=== PATIENT | male | born 1940 | race Caucasian/White ===

== ENCOUNTER 2017-02-01 14:34 | Emergency (ER) | payer MEDICARE, OTHER ==
--- NOTE | 2017-02-01 15:10 | ED Physician Documentation ---
PD HPI LOWER EXT INJURY - Stated complaint Stated Complaint: FALL, L LEG INJ - Chief complaint Chief Complaint: Ext Problem - History obtained from History obtained from: Patient - History of Present Illness PD HPI LOW EXT INJURY LOCATION: Left, Ankle, Foot Type of injury: Twist (he got his feet entangled in pajamas and bedsheet as he got out of bed, and fell to floor, twisting foot and ankle. Landed to hands and knees, per . No injury to head, chest, abdomen. Pain in left ankle and foot with walking.) Where injury occurred: Home Timing - onset: Today (this morning) Timing - duration: Hours Timing - details: Abrupt onset, Still present Improved by: Rest Worsened by: Moving, Other (standing) Associated symptoms: Numbness (chronically from neuropathy.). No: Weakness Contributing factors: No: Anticoagulated Similar symptoms before: Has not had sx before Recently seen: Not recently seen Review of Systems Constitutional: denies: Fever, Chills Cardiac: denies: Chest pain / pressure, Palpitations Respiratory: denies: Dyspnea, Cough GI: denies: Abdominal Pain, Nausea, Vomiting, Diarrhea : denies: Dysuria, Frequency Skin: denies: Abrasion (s), Laceration (s) Neurologic: reports: Numbness (both feet and legs due to diabetes). denies: Headache, Head injury PD PAST MEDICAL HISTORY - Past Medical History Cardiovascular: Hypertension, High cholesterol, Coronary artery disease Respiratory: Sleep apnea, CPAP use Endocrine/Autoimmune: Type 2 diabetes : Dialysis Psych: None Musculoskeletal: None, Gout - Past Surgical History Past Surgical History: Yes Cardiovascular: Angioplasty HEENT: Tonsil/Adenoidectomy - Present Medications Home Medications: Ambulatory Orders Medication Instructions Recorded Confirmed Aspirin [Aspir-Low] 325 mg PO DAILY 09/06/15 02/01/17 Calcium Carbonate [Calcium] 600 mg PO DAILY 09/06/15 02/01/17 Cholecalciferol (Vitamin D3) 2,000 - 50,000 unit PO DAILY 09/06/15 02/01/17 [Vitamin D] Felodipine [Felodipine ER] 10 mg PO DAILY 09/06/15 02/01/17 Gabapentin 100 - 300 mg PO TID 09/06/15 02/01/17 Insulin Aspart [Novolog] 6 - 14 unit SQ BID 01/15/16 06/12/17 Insulin Glargine,Hum.rec.anlog 28 unit SQ QPM 09/06/15 02/01/17 [Lantus] Lisinopril 10 mg PO DAILY 09/06/15 02/01/17 Metoprolol Tartrate 25 mg PO BID 09/06/15 02/01/17 Primidone 50 mg PO DAILY 09/06/15 02/01/17 Rosuvastatin Calcium [Crestor] 10 mg PO DAILY 09/06/15 02/01/17 Terazosin HCl 10 mg PO BID 09/06/15 02/01/17 rOPINIRole [Requip] 4 mg PO DAILY 09/06/15 02/01/17 Allopurinol 100 mg PO DAILY 02/01/17 02/01/17 Diphenoxylate/Atropine [Lomotil] 2 mg PO PRN PRN 02/01/17 02/01/17 Metolazone 10 mg PO DAILY 02/01/17 02/01/17 Torsemide 100 mg PO BID 02/01/17 02/01/17 - Allergies Allergies/Adverse Reactions: Allergies Allergy/AdvReac Type Severity Reaction Status Date / Time atorvastatin calcium * Allergy Severe leg cramps Verified 02/01/17 15:38 [From Lipitor] - Social History Does the pt smoke?: No Smoking Status: Never smoker Does the pt drink ETOH?: No Does the pt have substance abuse?: No - Immunizations Immunizations are current?: Yes - POLST Patient has POLST: Yes PD ED PE NORMAL - Vitals Vital signs reviewed: Yes - General General: Alert and oriented X 3, No acute distress, Well developed/nourished - HEENT HEENT: Atraumatic, Moist mucous membranes - Neck Neck: Supple, no meningeal sign, No bony TTP - Cardiac Cardiac: RRR, No murmur - Respiratory Respiratory: Clear bilaterally - Abdomen Abdomen: Soft, Non tender - Back Back: No spinal TTP - Derm Derm: Normal color, Warm and dry - Extremities Extremities: Other (left ankle with tenderness laterally and also some dorsally. Some tender base of 1st MT. No redness of skin. There is mild effusion of the ankle. Achilles is not tender. ) - Neuro Neuro: Alert and oriented X 3, No motor deficit, Normal speech, Other (less sensation to touch in feet and ankles, baseline per patient. ) Results - Vitals Vitals: Vital Signs - 24 hr 02/01/17 14:39 Temperature 36.3 C L Heart Rate 70 Respiratory 18 Rate Blood Pressure 152/72 H O2 Saturation 96 Oxygen O2 Source Room air - Rads (name of study) ankle and foot Radiology: Prelim report reviewed, EMP read contemporaneously (no fractures. Some arthritic change.s ) Departure - Departure Disposition: 01 Home, Self Care Clinical Impression: Left ankle sprain Qualifiers: Encounter type: initial encounter Involved ligament of ankle: other ligament Qualified Code(s): S93.492A - Sprain of other ligament of left ankle, initial encounter Condition: Stable Record reviewed to determine appropriate education?: Yes Instructions: ED Sprain Ankle Follow-Up: Benjamin Matos MD [Primary Care Provider] - Comments: Jaswant wrap and elevate for the swelling. Activity as able, with the boot brace when walking/standing to support the foot and ankle while healing. An ankle/ foot sprain can still take couple of weeks for healing. Recheck with PMD or Ortho if not improved though, over the the next 1-2 weeks. Ibuprofen 400 mg twice daily for 5-6 days for the pain and inflammation. Add Tylenol as needed for pains. At least one of your blood pressure readings in the ER today was elevated above the normal level. If you have diagnosed high blood pressure in the past, please be sure you are taking your BP medications and eating low salt diet. If you do not have know high BP, then being high today does not mean it is a fdc issue. It might be reactively high to the situation that has you here. You should follow up with your primary care to have the blood pressure checked again in the next few days/week or so to see if it is persistently high. If so, then you may need medication or changes in diet/lifestyle to treat it.
[2017-02-01] MEDS ORDERED: ACETAMINOPHEN 325 MG TABLET PO STA (15:22)
[2017-02-01] MEDS ORDERED: ACETAMINOPHEN 325 MG TABLET PO ONE (15:55)
--- NOTE | 2017-02-01 16:14 | XRAY Preliminary Report ---
Exam: XR Ankle 3 View LT IMPRESSION: Diffuse soft tissue swelling without fracture or dislocation. [facility] SITE ID: [id number]
--- NOTE | 2017-02-01 16:17 | XRAY Report ---
EXAM: LEFT ANKLE RADIOGRAPHY EXAM DATE: 02/01/2017 03:46 PM. CLINICAL HISTORY: Twisted/fell this morning. COMPARISON: None. TECHNIQUE: 3 views. FINDINGS: Bones: No evidence of fracture. Small plantar heel spur. Joints: Normal. No effusion. No subluxations. The ankle mortise is normally aligned. Soft Tissues: Diffuse soft tissue swelling. Atherosclerosis. IMPRESSION: Diffuse soft tissue swelling without fracture or dislocation. [facility] Referring Provider Line: [phone] SITE ID: [id number]
--- NOTE | 2017-02-01 16:18 | XRAY Preliminary Report ---
Exam: XR Foot 3 View LT IMPRESSION: 1. No evidence of fracture or dislocation. 2. Mild osteoarthritis first metatarsophalangeal joint. 3. Hallux valgus with medial soft tissue swelling consistent with bunion formation. Some well cortica mathew erosions are noted at the first metatarsal head and proximal phalanx of the great toe which can b e secondary to osteoarthritis although the differential diagnosis would include gout. [facility] SITE ID: [id number]
--- NOTE | 2017-02-01 16:21 | XRAY Report ---
EXAM: LEFT FOOT RADIOGRAPHY EXAM DATE: 02/01/2017 03:46 PM. CLINICAL HISTORY: Twisted/fell this morning. COMPARISON: None. TECHNIQUE: 3 views. FINDINGS: Bones: No evidence of fracture. Small plantar heel spur. Ossicles adjacent to the navicular. Joints: Hallux valgus with mild joint space narrowing at the first metatarsal-phalangeal joint. Soft Tissues: Medial soft tissue swelling of the first metatarsophalangeal joint with well-corticated erosions at the first metatarsal head and medial base of the proximal phalanx great toe. IMPRESSION: 1. No evidence of fracture or dislocation. 2. Mild osteoarthritis first metatarsophalangeal joint. 3. Hallux valgus with medial soft tissue swelling consistent with bunion formation. Some well cortica mathew erosions are noted at the first metatarsal head and proximal phalanx of the great toe which can b e secondary to osteoarthritis although the differential diagnosis would include gout. [facility] Referring Provider Line: [phone] SITE ID: [id number]
[2017-02-01 16:59] VITALS: BP 173/78
== END 2017-02-01 16:57 | disposition home or self-care (01) ==
LOC: ED 14:34
DX: S93.492A Sprain of other ligament of left ankle, initial encounter (principal); W06.XXXA Fall from bed, initial encounter; X50.1XXA Overexertion from prolonged static or awkward postures, initial encounter; Y93.89 Activity, other specified; Y92.003 Bedroom of unspecified non-institutional (private) residence as the place of occurrence of the external cause; I10 Essential (primary) hypertension; E11.9 Type 2 diabetes mellitus without complications; Z79.4 Long term (current) use of insulin; Z79.82 Long term (current) use of aspirin
CPT/HCPCS: 73610; 73630; 99283; A9270

== ENCOUNTER 2017-09-13 13:37 | Outpatient (CLI) | payer MEDICARE, OTHER | END 2017-09-13 13:38 | disposition home or self-care (01) | LOC: SC 13:37 | PROVIDERS: ATTEND Internal Medicine Pulmonary Disease | DX: G47.33 Obstructive sleep apnea (adult) (pediatric) (principal); G47.61 Periodic limb movement disorder | CPT/HCPCS: 99203; G0463; 99212 ==

== ENCOUNTER 2018-01-04 20:35 | Outpatient (CLI) | payer MEDICARE, OTHER | END 2018-01-04 20:36 | disposition home or self-care (01) | LOC: SC 20:35 | PROVIDERS: ATTEND Internal Medicine Pulmonary Disease | DX: G47.33 Obstructive sleep apnea (adult) (pediatric) (principal); G47.61 Periodic limb movement disorder | CPT/HCPCS: 95810 ==

== ENCOUNTER 2018-02-09 14:07 | Outpatient (CLI) | payer MEDICARE, OTHER | END 2018-02-09 14:08 | disposition home or self-care (01) | LOC: SC 14:07 | PROVIDERS: ATTEND Nurse Practitioner Family | DX: G47.33 Obstructive sleep apnea (adult) (pediatric) (principal); G47.61 Periodic limb movement disorder | CPT/HCPCS: 99214; G0463; 99212 ==

== ENCOUNTER 2018-03-02 16:09 | Outpatient (CLI) | payer MEDICARE, OTHER | END 2018-03-02 16:10 | disposition home or self-care (01) | LOC: SC 16:09 | PROVIDERS: ATTEND Nurse Practitioner Family | DX: G47.33 Obstructive sleep apnea (adult) (pediatric) (principal) | CPT/HCPCS: 99214; G0463; 99212 ==

== ENCOUNTER 2018-03-22 06:28 | Emergency (ER) | payer MEDICARE, OTHER ==
--- NOTE | 2018-03-22 07:56 | CT Report ---
Procedure Date: 03/22/2018 Accession Number: [id number] / [id number] Procedure: CT - Head W/O CPT Code: FULL RESULT: EXAM: CT HEAD EXAM DATE: 03/22/2018 07:31 AM. CLINICAL HISTORY: Fall. Frontal scalp hematoma. COMPARISON: HEAD W/O 04/29/2016 5:54 AM. TECHNIQUE: Multiaxial CT images were obtained from the foramen magnum to the vertex. Reformats: Coronal. IV contrast: None. In accordance with CT protocol optimization, one or more of the following dose reduction techniques were utilized for this exam: automated exposure control, adjustment of mA and/or KV based on patient size, or use of iterative reconstructive technique. FINDINGS: Parenchyma: No intraparenchymal hemorrhage. No evidence of mass, midline shift, or CT findings of acute infarction. James-white differentiation is distinct. Diffuse chronic microangiopathic white matter changes are evident. Extraaxial Spaces: Normal for age. No subdural or epidural collections identified. Ventricles: The ventricles and cortical sulci are enlarged, consistent with age-related tissue loss. Sinuses and orbits: Imaged paranasal sinuses, orbits, and mastoids show no significant abnormality. Bones: No evidence of fracture or calvarial defect. Other: There is focal subcutaneous soft tissue swelling in the left frontal region. IMPRESSION: Generalized age-related cortical atrophic changes without evidence of acute intracranial abnormality. [facility]
--- NOTE | 2018-03-22 08:01 | CT Report ---
Procedure Date: 03/22/2018 Accession Number: [id number] / [id number] Procedure: CT - Cervical Spine W/O CPT Code: FULL RESULT: EXAM: CT CERVICAL SPINE WITHOUT CONTRAST DATE: 03/22/2018 07:31 AM. HISTORY: Fall. COMPARISONS: None. TECHNIQUE: Thin-section axial images were acquired of the cervical spine without contrast. Post-processing: Coronal and sagittal reformats. Other: None. In accordance with CT protocol optimization, one or more of the following dose reduction techniques were utilized for this exam: automated exposure control, adjustment of mA and/or KV based on patient size, or use of iterative reconstructive technique. FINDINGS: Alignment: No scoliosis. There is degenerative reversal of normal cervical lordosis centered at the C5 level. No spondylolisthesis. Bones: No fracture or bone lesion. Interspace Levels/Facets: There is severe degenerative disk changes at the C4-C7 levels. There are moderate severe degenerative facet changes throughout the cervical spine. There is moderate bilateral bony neural foraminal narrowing at the C5-C6 and C6-C7 levels. Musculature: There is mild fatty atrophy of the posterior paraspinal muscles. Other: The paravertebral and prevertebral soft tissues are unremarkable. The lung apices are clear. IMPRESSION: 1. No fracture or other acute osseous abnormality. 2. Moderate to severe degenerative disk and degenerative facet changes of the cervical spine. There is moderate bilateral bony neural foraminal narrowing at the C5-C6 and C6-C7 levels. [facility]
--- NOTE | 2018-03-22 08:20 | ED Physician Documentation ---
History of Present Illness - Stated complaint Stated Complaint: GLF/FACIAL SWELLING - Chief complaint Chief Complaint: Trauma Hd/Nk - Additonal information Additional information: 77 male suffers terribly from restless legs and sleep apnea has had sleep studies and used a CPAP fell out of bed and hit face of dresser falls freq 2/2 balance issues and fatigue - this is not new no blood thinners except asa uses cane - i suggested a walker no LOC today bt lip, abrasion to FH no recent fever cough NVD has healing L heel wound Review of Systems Constitutional: denies: Fever Cardiac: denies: Chest pain / pressure Respiratory: denies: Cough GI: denies: Vomiting, Diarrhea Musculoskeletal: denies: Neck pain Neurologic: reports: Headache, Head injury. denies: Focal weakness, Numbness Endocrine: denies: Easy bruising / bleeding Immunocompromised: denies: Immunocompromised PD PAST MEDICAL HISTORY - Past Medical History Past Medical History: Yes Cardiovascular: Hypertension, High cholesterol, Coronary artery disease Respiratory: Sleep apnea, CPAP use Endocrine/Autoimmune: Type 2 diabetes : Dialysis Psych: None Musculoskeletal: None, Gout - Past Surgical History Past Surgical History: Yes Cardiovascular: Angioplasty HEENT: Tonsil/Adenoidectomy - Present Medications Home Medications: Ambulatory Orders Medication Instructions Recorded Confirmed Aspirin [Aspir-Low] 325 mg PO DAILY 09/06/15 02/01/17 Calcium Carbonate [Calcium] 600 mg PO DAILY 09/06/15 02/01/17 Cholecalciferol (Vitamin D3) 2,000 - 50,000 unit PO DAILY 09/06/15 02/01/17 [Vitamin D] Felodipine [Felodipine ER] 10 mg PO DAILY 09/06/15 02/01/17 Gabapentin 100 - 300 mg PO TID 09/06/15 02/01/17 Insulin Aspart [Novolog] 6 - 14 unit SQ BID 09/06/15 02/01/17 Insulin Glargine,Hum.rec.anlog 28 unit SQ QPM 09/06/15 02/01/17 [Lantus] Lisinopril 10 mg PO DAILY 09/06/15 02/01/17 Metoprolol Tartrate 25 mg PO BID 09/06/15 02/01/17 Primidone 50 mg PO DAILY 09/06/15 02/01/17 Rosuvastatin Calcium [Crestor] 10 mg PO DAILY 09/06/15 02/01/17 Terazosin HCl 10 mg PO BID 09/06/15 02/01/17 rOPINIRole [Requip] 4 mg PO DAILY 09/06/15 02/01/17 Allopurinol 100 mg PO DAILY 02/01/17 02/01/17 Diphenoxylate/Atropine [Lomotil] 2 mg PO PRN PRN 02/01/17 02/01/17 Torsemide 100 mg PO BID 02/01/17 02/01/17 metOLazone [Metolazone] 10 mg PO DAILY 02/01/17 02/01/17 - Allergies Allergies/Adverse Reactions: Allergies Allergy/AdvReac Type Severity Reaction Status Date / Time atorvastatin calcium * Allergy Severe leg cramps Verified 03/22/18 06:59 [From Lipitor] - Social History Does the pt smoke?: No Smoking Status: Never smoker Does the pt drink ETOH?: No Does the pt have substance abuse?: No - Immunizations Immunizations are current?: Yes - POLST Patient has POLST: Yes PD ED PE NORMAL - Vitals Vital signs reviewed: Yes - General General: Alert and oriented X 3 - HEENT HEENT: PERRL, Other (abrasion and hematoma to low frehead medial to L eyebrwo, no orbit TTP, EOMI, no proptosis, bruise lower l lip, no lac, nl bite no midface mobility, mandible NT no broken teeth no tongue lac) - Neck Neck: No bony TTP - Cardiac Cardiac: RRR - Respiratory Respiratory: No respiratory distress, Clear bilaterally - Abdomen Abdomen: Soft, Non tender - Extremities Extremities: No deformity, Other (aged bruises, L heel dressing removed and wound healing well) Results - Vitals Vitals: Vital Signs - 24 hr 03/22/18 03/22/18 03/22/18 06:35 06:58 07:32 Temperature 35.9 C L Heart Rate 71 74 93 Respiratory 18 18 16 Rate Blood Pressure 161/79 H 161/69 H 174/114 H O2 Saturation 95 95 93 Oxygen O2 Source Room air - Rads (name of study) CTH Radiology: See rad report (no acute) CTCS Radiology: See rad report (no acute, severe degen changes) PD MEDICAL DECISION MAKING - Sepsis Event Vital Signs: Vital Signs - 24 hr 03/22/18 03/22/18 03/22/18 06:35 06:58 07:32 Temperature 35.9 C L Heart Rate 71 74 93 Respiratory 18 18 16 Rate Blood Pressure 161/79 H 161/69 H 174/114 H O2 Saturation 95 95 93 Oxygen O2 Source Room air Departure - Departure Disposition: 01 Home, Self Care Clinical Impression: Fall Qualifiers: Encounter type: initial encounter Qualified Code(s): W19.XXXA - Unspecified fall, initial encounter Head injury Qualifiers: Encounter type: initial encounter Qualified Code(s): S09.90XA - Unspecified injury of head, initial encounter Condition: Good Instructions: ED Head Injury Closed Comments: Please read over the head injury precautions - please stay with an adult who can monitor you - please return to the ER if worse Tyelnol and ic as needed for pain Keep abrasion clean and apply antibiotic ointment twice a day Consider using a walker - you might be able to borrow one from the [employer] to try And please get your blood pressure rechecked - it was high today
[2018-03-22] MEDS ORDERED: TETANUS/DIPHTHERIA/PERTUSSIS 0.5 ML SYRINGE IM ONE (08:46)
[2018-03-22 09:22] VITALS: BP 169/78
== END 2018-03-22 09:50 | disposition home or self-care (01) ==
LOC: ED 06:28
DX: S09.90XA Unspecified injury of head, initial encounter (principal); I10 Essential (primary) hypertension; W06.XXXA Fall from bed, initial encounter; Z91.81 History of falling; Y92.003 Bedroom of unspecified non-institutional (private) residence as the place of occurrence of the external cause
CPT/HCPCS: 70450; 72125; 99283; 99284

== ENCOUNTER 2018-06-30 11:03 | Outpatient (CLI) | payer MEDICARE, OTHER | END 2018-06-30 11:04 | disposition EMS.NT | LOC: EMS 11:03 | PROVIDERS: ATTEND Surgery | DX: R53.1 Weakness (principal); R11.0 Nausea; R19.7 Diarrhea, unspecified ==